=== PATIENT | female | born 1985 | race Caucasian/White ===

== ENCOUNTER 2021-02-15 20:40 | Observation (INO) | payer MEDICAID ==
[~2021-02-15] VITALS: Ht 165.1 cm; Wt 67.0 kg
[2021-02-15] MEDS ORDERED: DEXT 5%/0.9% NACL 1,000 ML IV ONE (21:00)
[2021-02-15] MEDS ORDERED: LEVETIRACETAM 500MG PREMIX 100 ML IV ONE (21:30)
[2021-02-15 21:53] LABS: CHLORIDE 106 mEq/L (98-107)
[2021-02-15 21:59] LABS: ETHANOL BLOOD < 10 mg/dL
[2021-02-15 22:00] VITALS: BP 105/66
[2021-02-15 22:00] LABS: BASOPHILS % 0.5 % (0.0-2.0); EOSINOPHILS % 3.8 % (0.0-5.0); HEMATOCRIT. 36.1 % (36.0-48.0); LYMPHOCYTES % 9.3 % (20.0-50.0); MEAN CORPUSCULAR HEMOGLOBIN 28.8 pg (28.0-32.0); MEAN CORPUSCULAR VOLUME 86.8 fL (81.0-99.0); MEAN PLATELET VOLUME 10.1 fl (7.4-10.4); MONOCYTES % 6.5 % (2.0-8.0); NEUTROPHILS % 79.9 % (40.0-76.0); PLATELET 240 x1000/uL (130-400); RED BLOOD CELL COUNT 4.16 mill/uL (4.2-5.4); RED CELL DISTRIBUTION WIDTH 13.6 % (11.6-14.6)
[2021-02-15 22:18] LABS: CARBAMAZEPINE < 0.5 ug/mL (4-12)
[2021-02-15 22:26] LABS: PHENOBARBITAL < 2.1 ug/mL (15.0-40.0); VALPROIC ACID < 3.0 ug/mL (50-100)
[2021-02-16 03:08] LABS: HEMATOCRIT. 33.2 % (36.0-48.0); HEMOGLOBIN. 10.9 g/dL (12.0-16.0); MEAN CORPUSCULAR HEMOGLOBIN 28.6 pg (28.0-32.0); MEAN CORPUSCULAR VOLUME 86.9 fL (81.0-99.0); MEAN PLATELET VOLUME 9.8 fl (7.4-10.4); PLATELET 223 x1000/uL (130-400); RED BLOOD CELL COUNT 3.82 mill/uL (4.2-5.4); RED CELL DISTRIBUTION WIDTH 13.3 % (11.6-14.6)
[2021-02-16 03:11] LABS: CHLORIDE 109 mEq/L (98-107)
[2021-02-16 03:12] LABS: CLARITY URINE CLOUDY (CLEAR); COLOR URINE YELLOW (YELLOW); KETONES URINE TRACE (NEGATIVE); LEUKOCYTE ESTERASE URINE 2+ (NEGATIVE); NITRITE URINE NEGATIVE (NEGATIVE); OCCULT BLOOD URINE NEGATIVE (NEGATIVE); PROTEIN URINE TRACE (NEGATIVE); SPECIFIC GRAVITY URINE 1.012 (1.005-1.030)
[2021-02-16 03:22] LABS: *AMPHETAMINES SCREEN URINE NEGATIVE (NEGATIVE); *BARBITURATES SCREEN URINE NEGATIVE (NEGATIVE); *BENZODIAZEPINES SCREEN URINE NEGATIVE (NEGATIVE); *COCAINE SCREEN URINE NEGATIVE (NEGATIVE); METHADONE URINE SCREEN NEGATIVE (NEGATIVE)
[2021-02-16 03:23] LABS: CANNABINOID URINE SCREEN NEGATIVE (NEGATIVE); OPIATES URINE SCREEN NEGATIVE (NEGATIVE); PHENCYCLIDINE URINE SCREEN NEGATIVE (NEGATIVE)
[2021-02-16] MEDS ORDERED: PREN-176 PO (03:55)
[2021-02-16 04:07] LABS: D-DIMER 1.77 mg/L FEU (<0.50); INR 0.9; PARTIAL THROMBOPLASTIN TIME 25.1 sec (23.4-31.0)
[2021-02-16 04:45] LABS: PLATELET ESTIMATE NORMAL
[2021-02-17] MEDS ORDERED: LAM25 PO (10:55)
== END 2021-02-16 04:58 | disposition home or self-care (01) ==
LOC: ER 20:40 → 8 EST LDRP 02-16 01:21
PROVIDERS: ADMIT Obstetrics & Gynecology; ATTEND Obstetrics & Gynecology
DX: O99.353 Diseases of the nervous system complicating pregnancy, third trimester (principal); G40.909 Epilepsy, unspecified, not intractable, without status epilepticus; O15.9 Eclampsia, unspecified as to time period; R55 Syncope and collapse; Z91.14 Patient's other noncompliance with medication regimen; Z3A.35 35 weeks gestation of pregnancy
CPT/HCPCS: 36415; 59025; 76805; 76818; 80053; 80156; 80165; 80184; 80185; 80305; 80320; 81003; 82140; 82962; 83605; 84443; 84550; 85025; 85379; 85384; 85610; 85730; 93005; 96365; 99284; G0378; J1953; J7042; 99281; G0480